=== PATIENT | female | born 1965 | race Caucasian/White ===

== ENCOUNTER 2019-06-15 09:40 | Outpatient (CLI) | payer BC, SELFPAY ==
[2019-06-15 09:54] LABS: Add Urine Microscopic? YES; Appearance Urine Sl Cloudy (Clear); Bilirubin Urine Negative (Negative); Blood Urine Negative (Negative); Color Urine Yellow (Yellow); Glucose Urine UA Negative (Negative); Ketones Urine Negative (Negative); Leukocyte Esterase Ur 1+ (Negative); Nitrate Urine Negative (Negative); Protein Urine Negative (Negative); Specific Grav Ur >= 1.030 (1.010-1.020); Urobilinogen Urine 0.2 mg/dL (0.2-1.0); pH Urine 5.5 (5.0-8.0)
[2019-06-15 10:02] LABS: Hemoglobin A1C 6.3 % (<5.7)
[2019-06-15 10:04] LABS: Creatinine Urine 177.76 mg/dL (40-278)
[2019-06-15 10:35] LABS: MALB Creatinine Ratio 6.8 mg/g (0-30); Microalbumin Urine Random 12.1 mg/L
[2019-06-15 10:39] LABS: Bacteria Urine 1+ /hpf; RBC Urine None seen /hpf (0-2); Squamous Epithelial Cell Urine Many /hpf (Few)
[2019-06-15 11:01] LABS: Alanine Aminotransferase 25 U/L (14-59); Albumin Level 3.5 g/dL (3.4-5.0); Alkaline Phosphatase 91 U/L (46-116); Anion Gap 12.5 mmol/L (7-16); Aspartate Amino Transferase 20 U/L (15-37); Bilirubin,Total 0.4 mg/dL (0.00-1.00); Blood Urea Nitrogen 16 mg/dL (7-18); Calcium 9.2 mg/dL (8.5-10.1); Carbon Dioxide 30 mmol/L (21-32); Chloride 105 mmol/L (98-108); Cholesterol 143 mg/dL (0-200); Creatine Kinase 44 U/L (26-192); Estimated Glomerular Filt Rate > 60; Glucose 81 mg/dL (70-99); HDL Direct 48 mg/dL (40-60); LDL Cholesterol Calculated 75 mg/dL (<130); Osmolality Calculated 296 mOsm/kg (285-295); Potassium 4.5 mmol/L (3.5-5.1); Sodium 143 mmol/L (136-145); Total Protein 7.7 g/dL (6.4-8.2); Triglycerides 99 mg/dL (0-150)
== END 2019-06-15 09:41 | disposition home or self-care (01) ==
LOC: CHSLAB 09:43
PROVIDERS: PCP Internal Medicine; Visit Provider Internal Medicine
DX: E78.2 Mixed hyperlipidemia (principal); I10 Essential (primary) hypertension; E11.9 Type 2 diabetes mellitus without complications
CPT/HCPCS: 36415; 80053; 80061; 81001; 82043; 82550; 83036

== ENCOUNTER 2019-07-26 16:14 | Outpatient (CLI) | payer BC, SELFPAY | END 2019-07-26 16:15 | disposition home or self-care (01) | LOC: CHSLAB 16:16 | PROVIDERS: PCP Internal Medicine; Visit Provider Internal Medicine | DX: Z80.3 Family history of malignant neoplasm of breast (principal) | CPT/HCPCS: 36415; 81162 ==

== ENCOUNTER 2019-12-28 10:18 | Outpatient (CLI) | payer BC, SELFPAY ==
[2019-12-28 10:35] LABS: Add Urine Microscopic? YES; Appearance Urine Clear (Clear); Bilirubin Urine Negative (Negative); Blood Urine Negative (Negative); Color Urine Yellow (Yellow); Glucose Urine UA Negative (Negative); Ketones Urine Negative (Negative); Leukocyte Esterase Ur 1+ (Negative); Nitrate Urine Negative (Negative); Protein Urine Negative (Negative); Specific Grav Ur 1.025 (1.010-1.020); Urobilinogen Urine 0.2 mg/dL (0.2-1.0)
[2019-12-28 10:40] LABS: Creatinine Urine 83.07 mg/dL (40-278); Microalbumin Urine Random 3.4 mg/L
[2019-12-28 10:42] LABS: Bacteria Urine Trace /hpf; Hemoglobin A1C 6.5 % (<5.7); RBC Urine None seen /hpf (0-2); Squamous Epithelial Cell Urine Few /hpf (Few)
[2019-12-28 11:15] LABS: Alanine Aminotransferase 28 U/L (14-59); Albumin Level 3.4 g/dL (3.4-5.0); Alkaline Phosphatase 91 U/L (46-116); Anion Gap 7 mmol/L (8-16); Aspartate Amino Transferase 27 U/L (15-37); Bilirubin,Total 0.4 mg/dL (0.00-1.00); Blood Urea Nitrogen 13 mg/dL (7-18); Carbon Dioxide 29 mmol/L (21-32); Chloride 103 mmol/L (98-108); Cholesterol 148 mg/dL (0-200); Creatine Kinase 48 U/L (26-192); Estimated Glomerular Filt Rate > 60; Glucose 89 mg/dL (70-99); HDL Direct 47 mg/dL (40-60); LDL Cholesterol Calculated 82 mg/dL (<130); Osmolality Calculated 287 mOsm/kg (285-295); Potassium 4.8 mmol/L (3.5-5.1); Sodium 139 mmol/L (136-145); Total Protein 7.7 g/dL (6.4-8.2); Triglycerides 93 mg/dL (0-150)
== END 2019-12-28 10:19 | disposition home or self-care (01) ==
LOC: CHSLAB 10:19
PROVIDERS: PCP Internal Medicine; Visit Provider Internal Medicine
DX: E78.2 Mixed hyperlipidemia (principal); E11.9 Type 2 diabetes mellitus without complications; I10 Essential (primary) hypertension
CPT/HCPCS: 36415; 80053; 80061; 81001; 82043; 82550; 83036

== ENCOUNTER 2020-05-04 10:12 | Outpatient (CLI) | payer BC, SELFPAY ==
[2020-05-04 11:09] LABS: SARS-CoV-2 Ag Negative (Negative)
== END 2020-05-04 10:13 | disposition home or self-care (01) ==
LOC: CHSLAB 10:15
PROVIDERS: PCP Internal Medicine; Visit Provider Internal Medicine
DX: R09.89 Other specified symptoms and signs involving the circulatory and respiratory systems (principal); Z20.828 Contact with and (suspected) exposure to other viral communicable diseases
CPT/HCPCS: 87426

== ENCOUNTER 2020-05-13 13:17 | Outpatient (CLI) | payer BC, SELFPAY ==
[2020-05-13 14:20] LABS: SARS-CoV-2 Ag Positive (Negative)
== END 2020-05-13 13:18 | disposition home or self-care (01) ==
LOC: CHSLAB 13:20
PROVIDERS: PCP Internal Medicine; Visit Provider Internal Medicine
DX: U07.1 COVID-19 (principal)
CPT/HCPCS: 87426

== ENCOUNTER 2020-06-27 10:03 | Outpatient (CLI) | payer BC, SELFPAY ==
[2020-06-27 10:20] LABS: Basophils Absolute Auto 0.05 K/mm3 (0.00-0.10); Basophils Percent Auto 0.5 % (0.0-1.0); Eosinophils Absolute Auto 0.23 K/mm3 (0.02-0.50); Eosinophils Percent Auto 2.4 % (1.0-6.0); Hematocrit 40.9 % (35.0-49.0); Hemoglobin 13.1 g/dL (12.0-15.0); Immature Granulocyte Absolute 0.06 K/mm3 (0.00-0.00); Immature Granulocyte Percent A 0.6 % (0.0-0.0); Lymphocytes Absolute Auto 2.09 K/mm3 (1.10-4.50); Lymphocytes Percent Auto 21.5 % (18.0-42.0); Mean Corpuscular Hemoglobin 28.7 pg (27.0-31.0); Mean Corpuscular Volume 89.7 fL (78.0-102.0); Mean Platelet Volume 10.2 fl (9.2-11.8); Monocytes Absolute Auto 0.59 K/mm3 (0.10-0.90); Monocytes Percent Auto 6.1 % (2.0-11.0); Neutrophils Absolute Auto 6.7 K/mm3 (1.7-7.2); Neutrophils Percent Auto 68.9 % (50.0-70.0); Platelet Count Result 277 K/mm3 (150-420); Red Blood Count 4.56 M/mm3 (4.20-5.40); Red Cell Distribution Width 13.6 % (11.6-14.4); White Blood Count 9.7 K/mm3 (4.8-10.8)
[2020-06-27 10:25] LABS: Add Urine Microscopic? YES; Appearance Urine Clear (Clear); Bilirubin Urine Negative (Negative); Blood Urine Negative (Negative); Color Urine Yellow (Yellow); Glucose Urine UA Negative (Negative); Ketones Urine Negative (Negative); Leukocyte Esterase Ur 1+ (Negative); Nitrate Urine Negative (Negative); Protein Urine Negative (Negative); Urobilinogen Urine 0.2 mg/dL (0.2-1.0); pH Urine 5.5 (5.0-8.0)
[2020-06-27 10:31] LABS: Bacteria Urine Trace /hpf; RBC Urine None seen /hpf (0-2); Squamous Epithelial Cell Urine Few /hpf (Few)
[2020-06-27 10:35] LABS: Microalbumin Urine Random < 13.0 mg/L
[2020-06-27 10:43] LABS: Hemoglobin A1C 6.4 % (<5.7)
[2020-06-27 11:44] LABS: Alanine Aminotransferase 42 U/L (14-59); Albumin Level 3.7 g/dL (3.4-5.0); Alkaline Phosphatase 98 U/L (46-116); Anion Gap 10 mmol/L (8-16); Aspartate Amino Transferase 27 U/L (15-37); Bilirubin,Total 0.5 mg/dL (0.00-1.00); Blood Urea Nitrogen 21 mg/dL (7-18); Calcium 9.3 mg/dL (8.5-10.1); Carbon Dioxide 28 mmol/L (21-32); Chloride 99 mmol/L (98-108); Cholesterol 145 mg/dL (0-200); Creatine Kinase 56 U/L (26-192); Estimated Glomerular Filt Rate 49; Glucose 140 mg/dL (70-99); HDL Direct 42 mg/dL (40-60); LDL Cholesterol Calculated 77 mg/dL (<130); Osmolality Calculated 289 mOsm/kg (285-295); Sodium 137 mmol/L (136-145); Total Protein 7.8 g/dL (6.4-8.2); Triglycerides 129 mg/dL (0-150)
== END 2020-06-27 10:04 | disposition home or self-care (01) ==
LOC: CHSLAB 10:05
PROVIDERS: PCP Internal Medicine; Visit Provider Internal Medicine
DX: E11.9 Type 2 diabetes mellitus without complications (principal); I10 Essential (primary) hypertension; E78.2 Mixed hyperlipidemia; L03.116 Cellulitis of left lower limb
CPT/HCPCS: 36415; 80053; 80061; 81001; 82043; 82550; 83036; 85025

== ENCOUNTER 2021-01-16 09:24 | Outpatient (CLI) | payer BC, SELFPAY ==
[2021-01-16 09:41] LABS: Add Urine Microscopic? YES; Appearance Urine Sl Cloudy (Clear); Bilirubin Urine Negative (Negative); Blood Urine Negative (Negative); Color Urine Light Yellow (Yellow); Glucose Urine UA Negative (Negative); Ketones Urine Negative (Negative); Leukocyte Esterase Ur 2+ (Negative); Nitrate Urine Negative (Negative); Protein Urine Negative (Negative); Specific Grav Ur 1.025 (1.010-1.020); Urobilinogen Urine 0.2 mg/dL (0.2-1.0); pH Urine 5.5 (5.0-8.0)
[2021-01-16 09:45] LABS: RBC Urine None seen /hpf (0-2); Squamous Epithelial Cell Urine Moderate /hpf (Few)
[2021-01-16 09:46] LABS: Bacteria Urine 2+ /hpf
[2021-01-16 09:48] LABS: Creatinine Urine 145.24 mg/dL (40-278); MALB Creatinine Ratio 8.9 mg/g (0-30); Microalbumin Urine Random < 13.0 mg/L
[2021-01-16 09:50] LABS: Hemoglobin A1C 7.3 % (<5.7)
[2021-01-16 11:02] LABS: Alanine Aminotransferase 35 U/L (14-59); Albumin Level 3.4 g/dL (3.4-5.0); Alkaline Phosphatase 105 U/L (46-116); Anion Gap 12 mmol/L (8-16); Aspartate Amino Transferase 23 U/L (15-37); Bilirubin,Total 0.2 mg/dL (0.00-1.00); Blood Urea Nitrogen 33 mg/dL (7-18); Calcium 9.2 mg/dL (8.5-10.1); Carbon Dioxide 23 mmol/L (21-32); Chloride 103 mmol/L (98-108); Cholesterol 148 mg/dL (0-200); Creatine Kinase 38 U/L (26-192); Estimated Glomerular Filt Rate 35; Glucose 152 mg/dL (70-99); HDL Direct 38 mg/dL (40-60); LDL Cholesterol Calculated 75 mg/dL (<130); Osmolality Calculated 296 mOsm/kg (285-295); Potassium 5.3 mmol/L (3.5-5.1); Sodium 138 mmol/L (136-145); Triglycerides 175 mg/dL (0-150)
[2021-01-16 11:57] LABS: Basophils Absolute Auto 0.05 K/mm3 (0.00-0.10); Basophils Percent Auto 0.5 % (0.0-1.0); Eosinophils Absolute Auto 0.23 K/mm3 (0.02-0.50); Eosinophils Percent Auto 2.2 % (1.0-6.0); Hematocrit 37.6 % (35.0-49.0); Hemoglobin 11.7 g/dL (12.0-15.0); Immature Granulocyte Absolute 0.05 K/mm3 (0.00-0.00); Immature Granulocyte Percent A 0.5 % (0.0-0.0); Lymphocytes Absolute Auto 2.59 K/mm3 (1.10-4.50); Lymphocytes Percent Auto 25.3 % (18.0-42.0); Mean Corpuscular HGB Conc 31.1 g/dL (32.0-36.0); Mean Corpuscular Hemoglobin 29.3 pg (27.0-31.0); Mean Platelet Volume 10.7 fl (9.2-11.8); Monocytes Absolute Auto 0.82 K/mm3 (0.10-0.90); Neutrophils Absolute Auto 6.5 K/mm3 (1.7-7.2); Neutrophils Percent Auto 63.5 % (50.0-70.0); Platelet Count Result 375 K/mm3 (150-420); Red Cell Distribution Width 12.8 % (11.6-14.4); White Blood Count 10.2 K/mm3 (4.8-10.8)
== END 2021-01-16 09:25 | disposition home or self-care (01) ==
LOC: CHSLAB 09:28
PROVIDERS: PCP Internal Medicine; Visit Provider Internal Medicine
DX: E11.65 Type 2 diabetes mellitus with hyperglycemia (principal); I10 Essential (primary) hypertension; E78.2 Mixed hyperlipidemia; L03.116 Cellulitis of left lower limb
CPT/HCPCS: 36415; 80053; 80061; 81001; 82043; 82550; 83036; 85025

== ENCOUNTER 2021-02-27 09:49 | Outpatient (CLI) | payer BC, SELFPAY ==
[2021-02-27 11:51] LABS: Anion Gap 10 mmol/L (8-16); Carbon Dioxide 26 mmol/L (21-32); Chloride 104 mmol/L (98-108); Potassium 4.7 mmol/L (3.5-5.1); Sodium 140 mmol/L (136-145)
[2021-02-27 11:52] LABS: Blood Urea Nitrogen 14 mg/dL (7-18); Calcium 8.9 mg/dL (8.5-10.1); Estimated Glomerular Filt Rate 52; Glucose 204 mg/dL (70-99); Osmolality Calculated 296 mOsm/kg (285-295)
== END 2021-02-27 09:50 | disposition home or self-care (01) ==
LOC: CHSLAB 09:50
PROVIDERS: PCP Internal Medicine; Visit Provider Internal Medicine
DX: I10 Essential (primary) hypertension (principal)
CPT/HCPCS: 36415; 80048

== ENCOUNTER 2021-04-03 11:45 | Outpatient (CLI) | payer BC, SELFPAY ==
[2021-04-03 14:13] LABS: Anion Gap 9 mmol/L (8-16); Blood Urea Nitrogen 16 mg/dL (7-18); Calcium 8.9 mg/dL (8.5-10.1); Carbon Dioxide 28 mmol/L (21-32); Chloride 101 mmol/L (98-108); Estimated Glomerular Filt Rate 45; Glucose 143 mg/dL (70-99); Osmolality Calculated 289 mOsm/kg (285-295); Potassium 4.6 mmol/L (3.5-5.1); Sodium 138 mmol/L (136-145)
== END 2021-04-03 11:46 | disposition home or self-care (01) ==
LOC: CHSLAB 11:46
PROVIDERS: PCP Internal Medicine; Visit Provider Internal Medicine
DX: I10 Essential (primary) hypertension (principal)
CPT/HCPCS: 36415; 80048

== ENCOUNTER 2021-05-22 09:39 | Outpatient (CLI) | payer BC, SELFPAY ==
[2021-05-22 10:00] LABS: Hemoglobin A1C 7.6 % (<5.7)
[2021-05-22 10:29] LABS: Anion Gap 13 mmol/L (8-16); Blood Urea Nitrogen 24 mg/dL (7-18); Carbon Dioxide 28 mmol/L (21-32); Chloride 97 mmol/L (98-108); Estimated Glomerular Filt Rate 47; Glucose 149 mg/dL (70-99); Osmolality Calculated 293 mOsm/kg (285-295); Potassium 4.3 mmol/L (3.5-5.1); Sodium 138 mmol/L (136-145)
== END 2021-05-22 09:40 | disposition home or self-care (01) ==
LOC: CHSLAB 09:42
PROVIDERS: PCP Internal Medicine; Visit Provider Internal Medicine
DX: E11.9 Type 2 diabetes mellitus without complications (principal)
CPT/HCPCS: 36415; 80048; 83036

== ENCOUNTER 2021-06-21 12:41 | Outpatient (CLI) | payer BC, SELFPAY ==
--- NOTE | ~2021-06-21 | MM_ITS ---
EXAMINATION: MM screening syeda BI w bárbara HISTORY: Screening TECHNIQUE: Craniocaudal and mediolateral oblique 3-D tomosynthesis images were obtained and synthetic 2-D images were generated. CAD analysis was submitted and interpreted. COMPARISON: Comparison to multiple prior studies sequentially, with oldest reviewed study dated 11/10. BREAST PARENCHYMAL COMPOSITION: There are scattered areas of fibroglandular density. FINDINGS: There is no evidence of suspicious mass, calcification, or architectural distortion to sugg est malignancy in either breast. There has been no suspicious interval change. IMPRESSION: 1. No mammographic evidence of malignancy. 2. Recommend routine screening mammography in one year. BI-RADS Category 1: Negative Reviewed, dictated and finalized at location A. R STITCHER
== END 2021-06-21 12:42 | disposition home or self-care (01) ==
LOC: CHSIMG 12:42
PROVIDERS: PCP Internal Medicine; Visit Provider Internal Medicine
DX: Z12.31 Encounter for screening mammogram for malignant neoplasm of breast (principal)
CPT/HCPCS: 77063; 77067

== ENCOUNTER 2021-08-18 08:17 | Outpatient (CLI) | payer SELFPAY | END 2021-08-18 08:18 | disposition home or self-care (01) | LOC: CHSOUTPT 08:19 | PROVIDERS: PCP Internal Medicine; Visit Provider Internal Medicine | DX: E66.01 Morbid (severe) obesity due to excess calories (principal) | CPT/HCPCS: 99199 ==

== ENCOUNTER 2021-10-09 10:24 | Outpatient (CLI) | payer BC, SELFPAY ==
[2021-10-09 10:39] LABS: Add Urine Microscopic? YES; Appearance Urine Clear (Clear); Basophils Absolute Auto 0.05 K/mm3 (0.00-0.10); Basophils Percent Auto 0.6 % (0.0-1.0); Bilirubin Urine Negative (Negative); Blood Urine Negative (Negative); Color Urine Light Yellow (Yellow); Eosinophils Absolute Auto 0.28 K/mm3 (0.02-0.50); Eosinophils Percent Auto 3.1 % (1.0-6.0); Glucose Urine UA Negative (Negative); Hematocrit 35.7 % (35.0-49.0); Hemoglobin 11.6 g/dL (12.0-15.0); Immature Granulocyte Absolute 0.03 K/mm3 (0.00-0.00); Immature Granulocyte Percent A 0.3 % (0.0-0.0); Ketones Urine Negative (Negative); Leukocyte Esterase Ur 1+ LEU/UL (Negative); Lymphocytes Absolute Auto 2.76 K/mm3 (1.10-4.50); Lymphocytes Percent Auto 30.7 % (18.0-42.0); Mean Corpuscular HGB Conc 32.5 g/dL (32.0-36.0); Mean Corpuscular Hemoglobin 30.2 pg (27.0-31.0); Mean Platelet Volume 10.1 fl (9.2-11.8); Monocytes Absolute Auto 0.71 K/mm3 (0.10-0.90); Monocytes Percent Auto 7.9 % (2.0-11.0); Neutrophils Absolute Auto 5.2 K/mm3 (1.7-7.2); Neutrophils Percent Auto 57.4 % (50.0-70.0); Nitrate Urine Negative (Negative); Platelet Count Result 316 K/mm3 (150-420); Protein Urine Negative (Negative); Red Blood Count 3.84 M/mm3 (4.20-5.40); Red Cell Distribution Width 12.9 % (11.6-14.4); Specific Grav Ur >= 1.030 (1.010-1.020); Urobilinogen Urine 0.2 mg/dL (0.2-1.0); pH Urine 5.5 (5.0-8.0)
[2021-10-09 10:44] LABS: Bacteria Urine 1+ /hpf; RBC Urine None seen /hpf (0-2); Squamous Epithelial Cell Urine Moderate /hpf (Few)
[2021-10-09 11:58] LABS: Alanine Aminotransferase 34 U/L (14-59); Albumin Level 3.5 g/dL (3.4-5.0); Alkaline Phosphatase 85 U/L (46-116); Anion Gap 9 mmol/L (8-16); Aspartate Amino Transferase 23 U/L (15-37); Bilirubin,Total 0.4 mg/dL (0.00-1.00); Blood Urea Nitrogen 33 mg/dL (7-18); Calcium 9.3 mg/dL (8.5-10.1); Carbon Dioxide 26 mmol/L (21-32); Chloride 102 mmol/L (98-108); Cholesterol 124 mg/dL (0-200); Creatine Kinase 49 U/L (26-192); Estimated Glomerular Filt Rate 42; Glucose 75 mg/dL (70-99); HDL Direct 38 mg/dL (40-60); LDL Cholesterol Calculated 58 mg/dL (<130); Osmolality Calculated 290 mOsm/kg (285-295); Potassium 4.6 mmol/L (3.5-5.1); Sodium 137 mmol/L (136-145); Total Protein 7.5 g/dL (6.4-8.2); Triglycerides 141 mg/dL (0-150)
[2021-10-09 12:03] LABS: Hemoglobin A1C 6.1 % (<5.7)
== END 2021-10-09 10:25 | disposition home or self-care (01) ==
LOC: CHSLAB 10:25
PROVIDERS: PCP Internal Medicine; Visit Provider Internal Medicine
DX: E78.2 Mixed hyperlipidemia (principal); E11.65 Type 2 diabetes mellitus with hyperglycemia; I10 Essential (primary) hypertension; R82.90 Unspecified abnormal findings in urine
CPT/HCPCS: 36415; 80053; 80061; 81001; 82550; 83036; 85025; 87086; 87088

== ENCOUNTER 2021-11-30 16:10 | Outpatient (CLI) | payer BC, SELFPAY ==
[2021-11-30 16:29] LABS: Anion Gap 9 mmol/L (8-16); Blood Urea Nitrogen 14 mg/dL (7-18); Calcium 9.4 mg/dL (8.5-10.1); Carbon Dioxide 28 mmol/L (21-32); Chloride 102 mmol/L (98-108); Estimated Glomerular Filt Rate 48; Glucose 153 mg/dL (70-99); Osmolality Calculated 291 mOsm/kg (285-295); Potassium 3.9 mmol/L (3.5-5.1); Sodium 139 mmol/L (136-145)
== END 2021-11-30 16:11 | disposition home or self-care (01) ==
LOC: CHSLAB 16:12
PROVIDERS: PCP Internal Medicine; Visit Provider Internal Medicine
DX: I10 Essential (primary) hypertension (principal)
CPT/HCPCS: 36415; 80048

== ENCOUNTER 2022-01-22 09:34 | Outpatient (CLI) | payer BC, SELFPAY ==
[2022-01-22 09:57] LABS: Basophils Absolute Auto 0.06 K/mm3 (0.00-0.10); Basophils Percent Auto 0.6 % (0.0-1.0); Eosinophils Absolute Auto 0.31 K/mm3 (0.02-0.50); Eosinophils Percent Auto 3.1 % (1.0-6.0); Hematocrit 39.3 % (35.0-49.0); Hemoglobin 12.5 g/dL (12.0-15.0); Immature Granulocyte Absolute 0.03 K/mm3 (0.00-0.00); Immature Granulocyte Percent A 0.3 % (0.0-0.0); Lymphocytes Absolute Auto 3.21 K/mm3 (1.10-4.50); Lymphocytes Percent Auto 32.6 % (18.0-42.0); Mean Corpuscular HGB Conc 31.8 g/dL (32.0-36.0); Mean Corpuscular Hemoglobin 29.4 pg (27.0-31.0); Mean Corpuscular Volume 92.5 fL (78.0-102.0); Mean Platelet Volume 10.2 fl (9.2-11.8); Monocytes Absolute Auto 0.72 K/mm3 (0.10-0.90); Monocytes Percent Auto 7.3 % (2.0-11.0); Neutrophils Absolute Auto 5.5 K/mm3 (1.7-7.2); Neutrophils Percent Auto 56.1 % (50.0-70.0); Platelet Count Result 322 K/mm3 (150-420); Red Blood Count 4.25 M/mm3 (4.20-5.40); Red Cell Distribution Width 12.3 % (11.6-14.4); White Blood Count 9.9 K/mm3 (4.8-10.8)
[2022-01-22 10:11] LABS: Add Urine Microscopic? YES; Appearance Urine Clear (Clear); Bilirubin Urine Negative (Negative); Blood Urine Negative (Negative); Color Urine Light Yellow (Yellow); Glucose Urine UA Negative (Negative); Ketones Urine Negative (Negative); Leukocyte Esterase Ur 1+ (Negative); Nitrate Urine Negative (Negative); Protein Urine Negative (Negative); Specific Grav Ur 1.025 (1.010-1.020); Urobilinogen Urine 0.2 mg/dL (0.2-1.0)
[2022-01-22 10:22] LABS: Alanine Aminotransferase 32 U/L (14-59); Albumin Level 3.4 g/dL (3.4-5.0); Alkaline Phosphatase 103 U/L (46-116); Anion Gap 9 mmol/L (8-16); Aspartate Amino Transferase 24 U/L (15-37); Bilirubin,Total 0.3 mg/dL (0.00-1.00); Blood Urea Nitrogen 19 mg/dL (7-18); Calcium 9.3 mg/dL (8.5-10.1); Carbon Dioxide 28 mmol/L (21-32); Chloride 100 mmol/L (98-108); Estimated Glomerular Filt Rate 54; Glucose 144 mg/dL (70-99); Osmolality Calculated 289 mOsm/kg (285-295); Potassium 4.1 mmol/L (3.5-5.1); Sodium 137 mmol/L (136-145); Total Protein 7.6 g/dL (6.4-8.2)
[2022-01-22 10:24] LABS: Hemoglobin A1C 6.9 % (<5.7)
[2022-01-22 10:33] LABS: RBC Urine None seen /hpf (0-2); Squamous Epithelial Cell Urine Few /hpf (Few); WBC Urine 0-3 /hpf (0-3)
[2022-01-22 10:34] LABS: Bacteria Urine 1+ /hpf
[2022-01-26 12:10] LABS: MALB Creatinine Ratio 1.3 mg/g (0-30); Microalbumin Urine Random < 1.3 mg/L
== END 2022-01-22 09:35 | disposition home or self-care (01) ==
LOC: CHSLAB 09:37
PROVIDERS: PCP Internal Medicine; Visit Provider Internal Medicine
DX: D64.9 Anemia, unspecified (principal); E11.9 Type 2 diabetes mellitus without complications; I10 Essential (primary) hypertension
CPT/HCPCS: 36415; 80053; 81001; 82043; 83036; 85025

== ENCOUNTER 2022-02-07 09:28 | Outpatient (CLI) | payer BC, SELFPAY ==
[2022-02-07 10:09] LABS: Ferritin 189 ng/mL (8-252); Free T3 2.42 pg/mL (2.18-3.98); Free T4 Free Thyroxine 1.07 ng/dL (0.76-1.46); Iron 52 ug/dL (50-170); Thyroid Stimulating Hormone 2.54 uIU/mL (0.36-3.74)
[2022-02-10 14:31] LABS: Vitamin D 25 Hydroxy 28 ng/mL (30-100)
== END 2022-02-07 09:29 | disposition home or self-care (01) ==
LOC: CHSLAB 09:30
PROVIDERS: PCP Internal Medicine; Visit Provider Internal Medicine
DX: L65.9 Nonscarring hair loss, unspecified (principal); M81.0 Age-related osteoporosis without current pathological fracture
CPT/HCPCS: 36415; 82306; 82728; 83540; 84439; 84443; 84481; 86038

== ENCOUNTER 2022-07-12 12:11 | Outpatient (CLI) | payer BC, SELFPAY ==
--- NOTE | ~2022-07-12 | MM_ITS ---
EXAMINATION: MM screening syeda BI w bárbara HISTORY: Screening mammogram TECHNIQUE: Craniocaudal and mediolateral oblique 3-D tomosynthesis images were obtained and synthetic 2-D images were generated. CAD analysis was submitted and interpreted. COMPARISON: June 21, 2021, February 17, 2020 bilateral screening mammogram examinations BREAST PARENCHYMAL COMPOSITION: The breasts are almost entirely fatty. FINDINGS: There is no evidence of suspicious mass, calcification, or architectural distortion to sugg est malignancy in either breast. There has been no suspicious interval change. IMPRESSION: 1. No mammographic evidence of malignancy. 2. Recommend routine screening mammography in one year. BI-RADS Category 1: Negative Reviewed, dictated and finalized at location A. NICAL CABLE JOINTER
== END 2022-07-12 12:12 | disposition home or self-care (01) ==
LOC: CHSIMG 12:11
PROVIDERS: PCP Internal Medicine; Visit Provider Internal Medicine
DX: Z12.31 Encounter for screening mammogram for malignant neoplasm of breast (principal)
CPT/HCPCS: 77063; 77067

== ENCOUNTER 2022-07-30 09:21 | Outpatient (CLI) | payer BC, SELFPAY ==
[2022-07-30 09:37] LABS: Appearance Urine Clear (Clear); Basophils Absolute Auto 0.04 K/mm3 (0.00-0.10); Basophils Percent Auto 0.5 % (0.0-1.0); Bilirubin Urine Negative (Negative); Blood Urine Negative (Negative); Eosinophils Absolute Auto 0.24 K/mm3 (0.02-0.50); Eosinophils Percent Auto 2.7 % (1.0-6.0); Glucose Urine UA Negative (Negative); Hematocrit 39.3 % (35.0-49.0); Hemoglobin 12.9 g/dL (12.0-15.0); Immature Granulocyte Absolute 0.03 K/mm3 (0.00-0.00); Immature Granulocyte Percent A 0.3 % (0.0-0.0); Ketones Urine Trace (Negative); Leukocyte Esterase Ur Trace LEU/UL (Negative); Lymphocytes Absolute Auto 2.63 K/mm3 (1.10-4.50); Lymphocytes Percent Auto 29.7 % (18.0-42.0); Mean Corpuscular HGB Conc 32.8 g/dL (32.0-36.0); Mean Corpuscular Hemoglobin 29.9 pg (27.0-31.0); Monocytes Percent Auto 7.9 % (2.0-11.0); Neutrophils Absolute Auto 5.2 K/mm3 (1.7-7.2); Neutrophils Percent Auto 58.9 % (50.0-70.0); Nitrate Urine Negative (Negative); Platelet Count Result 312 K/mm3 (150-420); Protein Urine Trace (Negative); Red Blood Count 4.32 M/mm3 (4.20-5.40); Red Cell Distribution Width 12.4 % (11.6-14.4); Specific Grav Ur >= 1.030 (1.010-1.020); Urobilinogen Urine 0.2 mg/dL (0.2-1.0); White Blood Count 8.9 K/mm3 (4.8-10.8); pH Urine 5.5 (5.0-8.0)
[2022-07-30 09:46] LABS: Color Urine Yellow (Yellow)
[2022-07-30 09:47] LABS: Add Urine Microscopic? NO; Bacteria Urine 1+ /hpf; RBC Urine None seen /hpf (0-2); Squamous Epithelial Cell Urine Moderate /hpf (Few)
[2022-07-30 09:59] LABS: Hemoglobin A1C 6.9 % (<5.7)
[2022-07-30 10:05] LABS: Alanine Aminotransferase 34 U/L (14-59); Albumin Level 3.4 g/dL (3.4-5.0); Alkaline Phosphatase 114 U/L (46-116); Anion Gap 11 mmol/L (8-16); Aspartate Amino Transferase 21 U/L (15-37); Bilirubin,Total 0.3 mg/dL (0.00-1.00); Blood Urea Nitrogen 20 mg/dL (7-18); Calcium 9.2 mg/dL (8.5-10.1); Carbon Dioxide 31 mmol/L (21-32); Chloride 104 mmol/L (98-108); Cholesterol 128 mg/dL (0-200); Creatine Kinase 39 U/L (26-192); Estimated Glomerular Filt Rate 54; Glucose 132 mg/dL (70-99); HDL Direct 44 mg/dL (40-60); LDL Cholesterol Calculated 50 mg/dL (<130); Osmolality Calculated 306 mOsm/kg (285-295); Potassium 4.4 mmol/L (3.5-5.1); Sodium 146 mmol/L (136-145); Total Protein 7.3 g/dL (6.4-8.2); Triglycerides 169 mg/dL (0-150)
[2022-08-02 21:27] LABS: Vitamin D 25 Hydroxy 26 ng/mL (30-100)
== END 2022-07-30 09:22 | disposition home or self-care (01) ==
LOC: CHSLAB 09:22
PROVIDERS: PCP Internal Medicine; Visit Provider Internal Medicine
DX: N39.0 Urinary tract infection, site not specified (principal); E55.9 Vitamin D deficiency, unspecified; E78.2 Mixed hyperlipidemia; E11.9 Type 2 diabetes mellitus without complications; I10 Essential (primary) hypertension
CPT/HCPCS: 36415; 80053; 80061; 81003; 82306; 82550; 83036; 85025

== ENCOUNTER 2022-09-06 11:57 | Outpatient (CLI) | payer BC, SELFPAY ==
--- NOTE | ~2022-09-06 | DEXA_ITS ---
Bone Density Report Name: ABEBE RAINES Age: 57 Sex: Female Ethnicity: White Date of : 1965 Indication: screening for osteoporosis; Referring Provider: Adam Hooker Study: Bone densitometry was performed. Exam Date: September 06, 2022 Accession number: [id number] Bone Density: Region BMD T-score Z-score Classification AP Spine(L1-L4) 0.877 -1.5 -0.3 Osteopenia Femoral Neck (Left) 0.631 -2.0 -0.8 Osteopenia Total Hip (Left) 0.836 -0.9 -0.1 Normal Femoral Neck (Right) 0.756 -0.8 0.3 Normal Total Hip (Right) 0.807 -1.1 -0.3 Osteopenia Femoral Neck Mean 0.693 -1.4 -0.2 Osteopenia Total Hip Mean 0.821 -1.0 -0.2 Normal World Health Organization criteria for BMD impression classify patients as: Normal (T-score at or above -1.0), Osteopenia (T-score between -1.0 and -2.5), or Osteoporosis (T-score at or below -2.5). 10-year Fracture Risk: FRAX not reported because: Premenopausal woman Clinical Information Provided by Patient: Patient maximum height was 65 No regular weight bearing exercise Does not regularly consume dairy products Drinks caffeinated beverages Onset of menses at age 12 Premenopausal Number of children 0 Missed period for more than 6 months in a row Impression: The patient's bone mass is within expected range for age, gender and ethnicity. Discussion: BONE DENSITY IS WITHIN EXPECTED LIMITS FOR AGE, SEX AND RACE. Bone density is within expected limits for age, sex and race at all sites measured. The patient should follow a healthful lifestyle (good nutrition with adequate calcium and vitamin D, and appropriate weight-bearing exercise). Follow-Up: Consider repeating this study in 2 to 3 years to reassess this patient's status, or sooner if there is some new clinical indication. Reported by: Dr. Ottoniel Miller on 09/06/2022 12:24:00 PM. Reviewed, dictated and finalized at location A. [facility]
== END 2022-09-06 11:58 | disposition home or self-care (01) ==
LOC: CHSIMG 11:58
PROVIDERS: PCP Internal Medicine; Visit Provider Internal Medicine
DX: Z78.0 Asymptomatic menopausal state (principal); M85.89 Other specified disorders of bone density and structure, multiple sites
CPT/HCPCS: 77080

== ENCOUNTER 2023-01-28 09:12 | Outpatient (CLI) | payer BC, SELFPAY ==
[2023-01-28 09:31] LABS: Appearance Urine Clear (Clear); Bilirubin Urine Negative (Negative); Blood Urine Negative (Negative); Color Urine Light Yellow (Yellow); Glucose Urine UA Negative (Negative); Ketones Urine Negative (Negative); Leukocyte Esterase Ur 1+ (Negative); Nitrate Urine Negative (Negative); Protein Urine Negative (Negative); Specific Grav Ur >= 1.030 (1.010-1.020); Urobilinogen Urine 0.2 mg/dL (0.2-1.0); pH Urine 5.5 (5.0-8.0)
[2023-01-28 09:37] LABS: Creatinine Urine 232.12 mg/dL (40-278); MALB Creatinine Ratio 15.1 mg/g (0-30); Microalbumin Urine Random 35.1 mg/L
[2023-01-28 09:39] LABS: Add Urine Microscopic? YES; Hemoglobin A1C 7.2 % (<5.7); RBC Urine None seen /hpf (0-2); Squamous Epithelial Cell Urine Moderate /hpf (Few)
[2023-01-28 09:40] LABS: Bacteria Urine 1+ /hpf
[2023-01-28 10:06] LABS: Alanine Aminotransferase 41 U/L (14-59); Albumin Level 3.5 g/dL (3.4-5.0); Alkaline Phosphatase 98 U/L (46-116); Anion Gap 5 mmol/L (8-16); Aspartate Amino Transferase 26 U/L (15-37); Bilirubin,Total 0.5 mg/dL (0.00-1.00); Blood Urea Nitrogen 19 mg/dL (7-18); Calcium 9.2 mg/dL (8.5-10.1); Carbon Dioxide 30 mmol/L (21-32); Chloride 105 mmol/L (98-108); Cholesterol 141 mg/dL (0-200); Estimated Glomerular Filt Rate > 60; Glucose 144 mg/dL (70-99); HDL Direct 41 mg/dL (40-60); LDL Cholesterol Calculated 71 mg/dL (<130); Osmolality Calculated 295 mOsm/kg (285-295); Potassium 4.6 mmol/L (3.5-5.1); Sodium 140 mmol/L (136-145); Total Protein 7.1 g/dL (6.4-8.2); Triglycerides 147 mg/dL (0-150)
[2023-01-30 11:25] LABS: Creatine Kinase 38 U/L (26-192)
== END 2023-01-28 09:13 | disposition home or self-care (01) ==
LOC: CHSLAB 09:13
PROVIDERS: PCP Internal Medicine; Visit Provider Internal Medicine
DX: I10 Essential (primary) hypertension (principal); E78.2 Mixed hyperlipidemia; E11.65 Type 2 diabetes mellitus with hyperglycemia
CPT/HCPCS: 36415; 80053; 80061; 81001; 82043; 82550; 83036

== ENCOUNTER 2023-04-29 09:20 | Outpatient (CLI) | payer BC, SELFPAY ==
[2023-04-29 09:43] LABS: Hemoglobin A1C 7.2 % (<5.7)
[2023-04-29 09:54] LABS: Alanine Aminotransferase 49 U/L (14-59); Albumin Level 3.6 g/dL (3.4-5.0); Alkaline Phosphatase 101 U/L (46-116); Anion Gap 5 mmol/L (8-16); Aspartate Amino Transferase 38 U/L (15-37); Bilirubin,Total 0.4 mg/dL (0.00-1.00); Blood Urea Nitrogen 22 mg/dL (7-18); Calcium 9.3 mg/dL (8.5-10.1); Carbon Dioxide 31 mmol/L (21-32); Chloride 100 mmol/L (98-108); Estimated Glomerular Filt Rate 49; Glucose 157 mg/dL (70-99); Osmolality Calculated 288 mOsm/kg (285-295); Potassium 4.5 mmol/L (3.5-5.1); Sodium 136 mmol/L (136-145); Total Protein 7.3 g/dL (6.4-8.2)
== END 2023-04-29 09:21 | disposition home or self-care (01) ==
LOC: CHSLAB 09:22
PROVIDERS: PCP Internal Medicine; Visit Provider Internal Medicine
DX: E11.65 Type 2 diabetes mellitus with hyperglycemia (principal)
CPT/HCPCS: 36415; 80053; 83036

== ENCOUNTER 2023-07-14 08:09 | Outpatient (CLI) | payer BC, SELFPAY ==
--- NOTE | ~2023-07-14 | MM_ITS ---
EXAMINATION: MM screening syeda BI w bárbara HISTORY: Screening TECHNIQUE: Craniocaudal and mediolateral oblique 3-D tomosynthesis images were obtained and synthetic 2-D images were generated. CAD analysis was submitted and interpreted. COMPARISON: Comparison to multiple prior studies sequentially, with oldest reviewed study dated 01/2018. BREAST PARENCHYMAL COMPOSITION: Not Dense: Breast are almost entirely fatty. FINDINGS: There is no evidence of suspicious mass, calcification, or architectural distortion to sugg est malignancy in either breast. There has been no suspicious interval change. IMPRESSION: 1. No mammographic evidence of malignancy. 2. Recommend routine screening mammography in one year. BI-RADS Category 1: Negative Reviewed, dictated and finalized at location A. ITY MANAGEMENT COORDINATOR
== END 2023-07-14 08:10 | disposition home or self-care (01) ==
LOC: CHSIMG 08:11
PROVIDERS: PCP Internal Medicine; Visit Provider Internal Medicine
DX: Z12.31 Encounter for screening mammogram for malignant neoplasm of breast (principal)
CPT/HCPCS: 77063; 77067

== ENCOUNTER 2023-09-02 10:07 | Outpatient (CLI) | payer BC, SELFPAY ==
[2023-09-02 11:40] LABS: Appearance Urine Clear (Clear); Bilirubin Urine Negative (Negative); Blood Urine Negative (Negative); Color Urine Light Yellow (Yellow); Glucose Urine UA Negative (Negative); Ketones Urine Negative (Negative); Leukocyte Esterase Ur 2+ (Negative); Nitrate Urine Negative (Negative); Protein Urine Negative (Negative); Specific Grav Ur 1.025 (1.010-1.020); Urobilinogen Urine 0.2 mg/dL (0.2-1.0)
[2023-09-02 11:42] LABS: Alanine Aminotransferase 54 U/L (14-59); Albumin Level 3.5 g/dL (3.4-5.0); Alkaline Phosphatase 96 U/L (46-116); Anion Gap 7 mmol/L (4-12); Aspartate Amino Transferase 35 U/L (15-37); Bilirubin,Total 0.5 mg/dL (0.00-1.00); Blood Urea Nitrogen 17 mg/dL (7-18); Carbon Dioxide 29 mmol/L (21-32); Chloride 102 mmol/L (98-108); Cholesterol 158 mg/dL (0-200); Creatine Kinase 36 U/L (26-192); Estimated Glomerular Filt Rate 59; Glucose 159 mg/dL (70-99); HDL Direct 41 mg/dL (40-60); LDL Cholesterol Calculated 83 mg/dL (<130); Osmolality Calculated 290 mOsm/kg (285-295); Potassium 4.4 mmol/L (3.5-5.1); Sodium 138 mmol/L (136-145); Total Protein 7.1 g/dL (6.4-8.2); Triglycerides 170 mg/dL (0-150)
[2023-09-02 11:45] LABS: Add Urine Microscopic? YES; RBC Urine None seen /hpf (0-2); Squamous Epithelial Cell Urine Moderate /hpf (Few); WBC Urine 0-3 /hpf (0-3)
[2023-09-02 11:46] LABS: Bacteria Urine 1+ /hpf
[2023-09-02 11:48] LABS: Creatinine Urine 122.07 mg/dL (40-278); MALB Creatinine Ratio 13.5 mg/g (0-30); Microalbumin Urine Random 16.6 mg/L
[2023-09-02 11:59] LABS: Hemoglobin A1C 7.6 % (<5.7)
== END 2023-09-02 10:08 | disposition home or self-care (01) ==
PROVIDERS: PCP Internal Medicine; Visit Provider Internal Medicine
DX: E78.2 Mixed hyperlipidemia (principal); E11.65 Type 2 diabetes mellitus with hyperglycemia; R10.9 Unspecified abdominal pain; N18.2 Chronic kidney disease, stage 2 (mild)
CPT/HCPCS: 36415; 80053; 80061; 81001; 82043; 82550; 83036

== ENCOUNTER 2024-03-02 09:36 | Outpatient (CLI) | payer BC, SELFPAY ==
[2024-03-02 10:31] LABS: Creatinine Urine 226.96 mg/dL (40-278); MALB Creatinine Ratio 17.5 mg/g (0-30); Microalbumin Urine Random 39.9 mg/L
[2024-03-02 10:38] LABS: Anion Gap 7 mmol/L (4-12); Blood Urea Nitrogen 17 mg/dL (7-18); Carbon Dioxide 31 mmol/L (21-32); Chloride 101 mmol/L (98-108); Estimated Glomerular Filt Rate > 60; Glucose 141 mg/dL (70-99); Osmolality Calculated 291 mOsm/kg (285-295); Potassium 4.2 mmol/L (3.5-5.1); Sodium 139 mmol/L (136-145)
[2024-03-02 10:46] LABS: Hemoglobin A1C 6.7 % (<5.7)
== END 2024-03-02 09:37 | disposition home or self-care (01) ==
LOC: CHSLAB 09:38
PROVIDERS: PCP Internal Medicine; Visit Provider Internal Medicine
DX: E11.65 Type 2 diabetes mellitus with hyperglycemia (principal)
CPT/HCPCS: 36415; 80048; 82043; 83036

== ENCOUNTER 2024-06-22 10:33 | Outpatient (CLI) | payer BC, SELFPAY ==
--- OUTSIDE RECORDS SUMMARY | 2024-06-22 10:38 | XMS_ITS | Referral Summary ---
Author Organization [facility] Address [address] [place] [address] Care Team Providers Care Practice Director Name Role Phone Adam Hooker MD Primary Care Provider [phone] Source Comments [facility],non-owned Affiliates and Associated Physician Practices is amultiple site organization consisting of ambulatory clinics and hospital sitesin [place], [place], [place] and [place]. This disclosure is being madepursuant to the Care Everywhere program and may not contain all information available regarding this patient. Last updated 18.[facility] Allergies Active Allergy Reactions Criticality Noted Date Comments Sulfa Drugs Itching,Swelling 03/21/2019 Medications * Be aware that medications may not be up to date on this document. Alwaysverify current medications with the patient. Medication Sig Dispensed Refills Start Date End Date Status glimepiride (AMARYL) 4 MG tablet 03/19/2019 Active lisinopril (PRINIVIL; ZESTRIL) 10 MG tablet 01/15/2019 Active metFORMIN ER 24hr (GLUCOPHAGE XR) 500 MG tablet 12/30/2018 Active pioglitazone (ACTOS) 30 MG tablet 01/20/2019 Active pravastatin (PRAVACHOL) 20 MG tablet 03/19/2019 Active Active Problems Problem Noted Date Diagnosed Date Mass of right breast on mammogram 10/13/2019 Immunizations Name Administration Dates Next Due INFLUENZA VACCINE 01/15/2020 Social History Tobacco Use Types Packs/Day Years Used Date Smoking Tobacco: Never Smokeless Tobacco: Never Alcohol Use Standard Drinks/Week Comments Not Currently 0 (1 standard drink = 0.6 oz pur e alcohol) Sex and Gender Information Value Date Recorded Sex Assigned at Not on file Gender Identity Not on file Sexual Orientation Not on file Last Filed Vital Signs Vital Sign Reading Time Taken Comments Blood Pressure 126/75 02/17/2020 8:58 AM CDT Pulse 82 02/17/2020 8:58 AM CDT Temperature 36.8 C (98.2 F) 02/17/2020 8:58 AM CDT Respiratory Rate 14 02/17/2020 8:58 AM CDT Oxygen Saturation 96% 02/17/2020 8:58 AM CDT Inhaled Oxygen Concentration - - Weight 143.5 kg (316 lb 6.4 oz) 02/17/2020 8:58 AM CDT Height 167.6 cm (5' 6 ) 02/17/2020 8:58 AM CDT Body Mass Index 51.07 02/17/2020 8:58 AM CDT Plan of Treatment Not on file Procedures Procedure Name Priority Date/Time Associated Diagnosis Comments MAMMO BILAT SCREENING Routine 02/17/2020 8:48 AM CDT Breast cancer screening from Last 3 Months or Most Recently Relevant to Health Maintenance Results * MAMMO BILAT SCREENING (02/17/2020 8:48 AM CDT) Anatomical Region Laterality Modality Breast Bilateral Mammography 02/17/2020 8:47 AM CDT Impressions 02/17/2020 8:48 AM CDT IMPRESSION: No mammographic evidence of malignancy. ASSESSMENT: BI-RADS Category 1: Negative mammogram. RECOMMENDATION: Annual screening mammograms are recommended. This report was electronically signed by MELIZA BOYD M.D. on 02/17/2020 8:48 AM . Narrative 02/17/2020 8:48 AM CDT Bilateral screening mammogram Date: 02/17/2020 8:05 AM Comparison: Multiple priors, most recently 10/14/2019 and 02/21/2019 History: Screening mammogram. Technique: The breasts were imaged in multiple views using 3D tomosynthesis with reconstructed/synthetic images and CAD analysis. Findings: No suspicious mass, grouped microcalcification or architectural distortion is seen. No significant change is noted since the prior examination. Breast parenchymal density: There are scattered areas of fibroglandular density. This examination was subjected to CAD analysis. Concetta Schultz MD MAMMO ORDERABLES from Last 3 Months or Most Recently Relevant to Health Maintenance Care Teams Practice Director Relationship Specialty Start Date End Date Adam Hooker MD PCP - General 03/12/19
--- OUTSIDE RECORDS SUMMARY | 2024-06-22 10:38 | XMS_ITS | Patient Health Summary ---
Author Organization [facility] Address [address] [place] [address] Care Team Providers Care Public Transit Specialist Name Role Phone Adam Hooker MD Primary Care Provider [phone] Note from [facility],non-owned Affiliates and Associated Physician Practices is amultiple site organization consisting of ambulatory clinics and hospital sitesin [place], [place], [place] and [place]. This disclosure is being madepursuant to the Care Everywhere program and may not contain all information available regarding this patient. Last updated 18.[facility] Allergies * Sulfa Drugs(Itching,Swelling) Medications * Be aware that medications may not be up to date on this document. Alwaysverify current medications with the patient. * glimepiride (AMARYL) 4 MG tablet(Started 03/19/2019) * lisinopril (PRINIVIL; ZESTRIL) 10 MG tablet(Started 01/15/2019) * metFORMIN ER 24hr (GLUCOPHAGE XR) 500 MG tablet(Started 12/30/2018) * pioglitazone (ACTOS) 30 MG tablet(Started 01/20/2019) * pravastatin (PRAVACHOL) 20 MG tablet(Started 03/19/2019) Active Problems Problem Noted Date Diagnosed Date Mass of right breast on mammogram 10/13/2019 Immunizations * INFLUENZA VACCINE(Given 01/15/2020) Social History Tobacco Use Types Packs/Day Years [...] Mass Index 51.07 02/17/2020 8:58 AM CDT Procedures * MAMMO BILAT SCREENING(Performed 02/17/2020) Performed for Breast cancer screening * US BREAST RIGHT LTD(Performed 10/14/2019) Performed for Breast mass, right * MAMMO RIGHT DIAGNOSTIC(Performed 10/14/2019) Performed for Breast mass, right * US BREAST RIGHT LTD(Performed 04/01/2019) Performed for Breast mass, right * EYE EXAM(Performed 03/18/2019) Results * MAMMO BILAT SCREENING (02/17/2020 8:48 [...] CAD analysis. Concetta Schultz MD MAMMO ORDERABLES * US BREAST RIGHT LTD (10/14/2019 9:46 AM CDT) Only the most recent of2 resultswithin the time period is included. Anatomical Region Laterality Modality Breast Right Mammography 10/14/2019 9:16 AM CDT Impressions 10/14/2019 9:57 AM CDT IMPRESSION: Mass in right breast is stable and considered benign. No further imaging follow-up is required. ASSESSMENT: BI-RADS Category 2: Benign finding(s). RECOMMENDATION: Patient may return to screening with next bilateral screening mammogram in February 2020. Findings discussed with the patient by Dr. Live. This report was electronically signed by GERDA LIVE M.D. on 10/14/2019 9:57 AM . Narrative 10/14/2019 9:57 AM CDT RIGHT DIAGNOSTIC MAMMOGRAM TARGETED RIGHT BREAST ULTRASOUND TECHNIQUE: Images were performed using 3D tomosynthesis images with reconstructed/synthetic 2D images. CAD analysis was performed. DATE: 10/14/2019. HISTORY: 54-year-old female here for short interval follow-up of probably benign right breast mass, initially identified on outside facility mammogram. COMPARISON: 04/01/2019, 03/05/2019, 03/02/2018. BREAST COMPOSITION: The breasts are almost entirely fatty. FINDINGS: There is no suspicious mass, architectural distortion, or microcalcification in the right breast on 2D or 3D images. There has been no substantial change from the prior study. Targeted ultrasound was performed at 9:00 in the right breast, 4 cm from the nipple, location of previously identified mass. There is an unchanged oval nearly anechoic mass with circumscribed margins measuring 0.5 x 0.2 x 0.4 cm, unchanged from prior study. Concetta Schultz MD US ORDERABLES * MAMMO RIGHT DIAGNOSTIC (10/14/2019 9:40 AM CDT) Anatomical Region Laterality Modality Breast Right Mammography 10/14/2019 9:16 AM CDT Impressions 10/14/2019 9:57 AM CDT IMPRESSION: Mass in right breast is stable and considered benign. No further imaging follow-up is required. ASSESSMENT: BI-RADS Category 2: Benign finding(s). RECOMMENDATION: Patient may return to screening with next bilateral screening mammogram in February 2020. Findings discussed with the patient by Dr. Live. This report was electronically signed by GERDA LIVE M.D. on 10/14/2019 9:57 AM . Narrative 10/14/2019 9:57 AM CDT RIGHT DIAGNOSTIC MAMMOGRAM TARGETED RIGHT BREAST ULTRASOUND TECHNIQUE: Images were performed using 3D tomosynthesis images with reconstructed/synthetic 2D images. CAD analysis was performed. DATE: 10/14/2019. HISTORY: 54-year-old female here for short interval follow-up of probably benign right breast mass, initially identified on outside facility mammogram. COMPARISON: 04/01/2019, 03/05/2019, 03/02/2018. BREAST COMPOSITION: The breasts are almost entirely fatty. FINDINGS: There is no suspicious mass, architectural distortion, or microcalcification in the right breast on 2D or 3D images. There has been no substantial change from the prior study. Targeted ultrasound was performed at 9:00 in the right breast, 4 cm from the nipple, location of previously identified mass. There is an unchanged oval nearly anechoic mass with circumscribed margins measuring 0.5 x 0.2 x 0.4 cm, unchanged from prior study. Concetta Schultz MD MAMMO ORDERABLES * EYE EXAM (03/18/2019 8:53 AM BATCH TESTER) Anatomical Region Laterality Modality Other Narrative 03/18/2019 8:53 AM BATCH TESTER Ordered by an unspecified provider. Scanned Document SCANNING ONLY Care Teams Public Transit Specialist Relationship Specialty Start Date End Date Adam Hooker MD PCP - General 03/12/19
--- OUTSIDE RECORDS SUMMARY | 2024-06-22 10:38 | XMS_ITS | Clinical Summary ---
Author Organization [facility] Address [address] [place] [address] Care Team Providers Care Nursery School Attendant Name Role Phone Adam Hooker MD Primary Care Provider [phone] Source Comments [facility],non-[facility] Affiliates and Associated Physician Practices is amultiple site organization consisting of ambulatory clinics and hospital sitesin [place], [place], [place] and [place]. This disclosure is being madepursuant to the Care Everywhere program and may not contain all information available regarding this patient. Last updated 18.[facility] Allergies Active Allergy Reactions Criticality Noted Date [...] Administration Dates Next Due INFLUENZA VACCINE 01/15/2020 Family History Medical History Relation Name Comments Cancer - Prostate Father Cancer - Breast Mother Cancer - Breast Paternal Aunt Relation Name Status Comments Father Mother Paternal Aunt Social History Tobacco Use Types Packs/Day Years [...] 02/17/2020 8:58 AM CDT Plan of Treatment Health Maintenance Due Date Last Done Comments COLOGUARD (AGES 45-75) - COL ON CA SCREENING 1965 COLON MONITORING 1965 COLONOSCOPY - COLON CA SCREENING 1965 CT COLONOGRAPHY - COLON CA SCREENING 1965 Colorectal Cancer Screening 1965 FIT - COLON CA SCREENING 1965 FLEX SIG - COLON CA SCREENING 1965 PAP SMEAR 1965 HIV SCREENING 1980 HEPATITIS C SCREENING 04/19/1983 DTAP/TDAP/TD VACCINES (1 - Tdap) 1984 HEPATITIS B VACCINE (1 of 3 - 19+ 3-dose series) 1984 PNEUMOCOCCAL VACCINE 50+ (1 of 1 - PCV) 2015 ZOSTER VACCINE (1 of 2) 2015 SCREENING FOR DIABETES 03/21/2019 MAMMOGRAM 02/16/2022 02/17/2020 COVID-19 VACCINE (1 - 2023-2 5 season) 2024 INFLUENZA VACCINE (#1) 2024 01/15/2020 DEPRESSION SCREENING 05/15/2024 HIB VACCINE Aged Out No longer eligi ble based on patient's age to complete this topic HPV VACCINE Aged Out No longer eligi ble based on patient's age to complete this topic MENINGOCOCCAL (Group B) VACCINE Aged Out No longer eligible based on patient's age to complete this topic MENINGOCOCCAL VACCINE Aged Out No mee crystal eligible based on patient's age to complete this topic PNEUMOCOCCAL VACCINE Aged Out No long er eligible based on patient's age to complete this topic Procedures Procedure Name Priority Date/Time Associated Diagnosis [...] Recently Relevant to Health Maintenance Care Teams Nursery School Attendant Relationship Specialty Start Date End Date Adam Hooker MD PCP - General 03/12/19
--- OUTSIDE RECORDS SUMMARY | 2024-06-22 10:38 | XMS_ITS | Clinical Summary ---
Author Organization [facility] [address] Address [address] [place] [id number] Care Team Providers Care Seed Sales Manager Name Role Phone Melecio Hooker MD Primary Care Provider [phone] Adam Hooker MD Unavailable [phone] Allergies Active Allergy Reactions Criticality Noted Date Comments Sulfa (Sulfonamide Antibiotics) Swelling Medium 07/13 vaginal Medications metFORMIN XR (GLUCOPHAGE XR) 500 mg 24 hr tablet 9 Active pravastatin (PRAVACHOL) 20 mg tablet 9 Active glimepiride (AMARYL) 4 mg tablet 9 Active Ozempic 0.25 mg or 0.5 mg(2 mg/1.5 mL) pen injector injection INJECT 0.25 MG SUBCUTANEOUSLY WEEKLY X 4 WEEKS , THEN INJECT 0.5 MG WEEKLY X 2 WEEKS 2 Active True Metrix Glucose Test Strip strip USE TO TEST GLUCOSE TWICE DAILY 2 Active lisinopril-hyd roCHLOROthiazi de (ZESTORETIC) 20-12.5 mg per tablet Take 1 tablet by mouth daily 2 Active Active Problems Problem Noted Date Diagnosed Date Type 2 diabetes mellitus wit h hyperglycemia, without long-term current use of insulin 07/20/2021 Assessment & Plan (07/20/2021 2:45 PM ENVIRONMENTAL ADVISER): Diagnosed in 2014 Control : fluctuation in sugars based on diet. A1c 7.6% on 05/22/21 Kidney: GFR 47- creatinine of 1.18 Neuropathy : none Eye : needs exam Plan: Discussed with patient need to be on diabetic diet , and work on weight loss to get sugars in better control She was provided with diet plan, and asked to see dietitian close to her home. Discussed the option of bariatric surgery for obesity and diabetes, and that is based on her wishes. Continue Ozempic which can help her with weight loss and the dose can be increased if needed in the future. Continue Glimepiride and Metformin Monitor sugars once /day and target am sugars 80-130. Hypoglycemia symptoms and treatment reviewed with patient. Call if having low sugars. Ophthalmology exam on regular basis. Venous stasis 07/24/2019 Surgical History Surgery Date Site/Laterality Comments CHOLECYSTECTOMY 05/15/1999 - 05/14/2000 Medical History Medical History Date Comments Hypertension Diabetes (HCC) Morbid obesity (HCC) Social History Tobacco Use Types Packs/Day Years Used Date Smoking Tobacco: Never Smokeless Tobacco: Never Personal Safety Answer Date Recorded Getting School Help Needed Not on file 07/15 Comments Unknown Sex and Gender Information Value Date Recorded Sex Assigned at Not on file Legal Sex Female 3:08 PM ENVIRONMENTAL ADVISER Gender Identity Not on file Sexual Orientation Not on file Obstetrics History Last Filed Vital Signs Vital Sign Reading Time Taken Comments Blood Pressure 128/68 07/20/2021 1:58 PM ENVIRONMENTAL ADVISER Pulse - - Temperature - - Respiratory Rate - - Oxygen Saturation - - Inhaled Oxygen Concentration - - Weight 121.4 kg (267 lb 11.2 oz) 07/20/2021 1:58 PM ENVIRONMENTAL ADVISER Height 165.1 cm (5' 5 ) 07/20/2021 1:58 PM ENVIRONMENTAL ADVISER Body Mass Index 44.55 07/20/2021 1:58 PM ENVIRONMENTAL ADVISER Plan of Treatment Health Maintenance Due Date Last Done Comments Breast Cancer Screening-Mammogram 1965 Cervical Cancer Screening 1965 Colon Cancer Screening-Colonoscopy 1965 Depression Screening 1965 Hepatitis C Screening 1965 DTaP/Tdap/Td Vaccine (1 - Tdap) 1976 Hepatitis B Screening 1983 Regular Well Visit/Exam 18-64 1983 Hemoglobin A1C 11/19/2021 05/22/2021 Albumin Creatinine Ratio, Urine 01/16/2022 Lipid Panel 01/16/2022 01/16/2021 Dilated Eye Exam 03/29/2022 03/29/2021 eGFR 05/22/2022 05/22/2021 Foot Exam 07/20/2022 07/20/2021 Covid-19 Vaccine (4 - 2023-2 5 season) 2024 02/23/2021, 08/02/2020, 07/12/2020 Influenza Vaccine (#1) 2024 , 01/15/2020, 03/07/2019, Additional history exists Pneumococcal vaccine <65 (3 of 3 - PPSV23 or PCV20) 2030 12/26/2018, 07/23/2015, 01/31/2014 Zoster Vaccine Completed 03/20/2019, 12/07/2018 Procedures Procedure Name Priority Date/Time Associated Diagnosis Comments BASIC METABOLIC PANEL Routine 05/22/2021 HEMOGLOBIN A1C Routine 05/22/2021 DIABETIC EYE EXAM Routine 03/29/2021 LIPID PANEL Routine 01/16/2021 ALBUMIN CREATININE RATIO, URINE Routine 01/16/2021 from Last 3 Months or Most Recently Relevant to Health Maintenance Results * Hemoglobin A1c (05/22/2021) SCRIBED Hemoglobin A1c 7.6 - - - EXTERNAL LAB Blood specimen (specimen) 05/22/2021 us Historical Provider MD LAB BLOOD ORDERABLES Georgina l Result EXTERNAL LAB * Basic metabolic panel (05/22/2021) SCRIBED Sodium 138 - - - mmol/L EXTERNAL LAB SCRIBED Potassium 4.3 - - - mmol/L EXTERNAL LAB SCRIBED Chloride 97 - - - mmol/L EXTERNAL LAB SCRIBED Carbon Dioxide 28 - - - mmol/L EXTERNAL LAB SCRIBED Anion Gap 13 - - - mmol/L EXTERNAL LAB SCRIBED Urea Nitrogen (BUN) 24 - - - mg/dl EXTERNAL LAB SCRIBED Creatinine 1.18 - - - mg/dl EXTERNAL LAB SCRIBED Glucose 149 - - - mg/dl EXTERNAL LAB SCRIBED Calcium 9.0 - - - mg/dl EXTERNAL LAB SCRIBED eGFR in 47 - - - EXTERNAL LAB SCRIBED eGFR in NonAfrican [place] 47 - - - EXTERNAL LAB Blood specimen (specimen) 05/22/2021 Result [employer] Provider MD LAB BLOOD ORDERABLES Georgina l Result EXTERNAL LAB * Diabetic Eye Exam (03/29/2021) Result [employer] Provider MD HEALTH MAINTENANCE Final Result * Albumin Creatinine Ratio, Urine (01/16/2021) SCRIBED Creatinine, Urine 145.24 - - - EXTERNAL LAB SCRIBED Microalbumin <13.0 - - - EXTERNAL LAB Urine 01/16/2021 Result [employer] Provider MD LAB URINE ORDERABLES Georgina l Result Performing Organization Address [facility] Co de Phone Number EXTERNAL LAB * Lipid panel (01/16/2021) SCRIBED Cholesterol, Total 148 - - - EXTERNAL LAB SCRIBED HDL 38 - - - EXTERNAL LAB SCRIBED LDL 75 - - - EXTERNAL LAB SCRIBED Triglycerides 175 - - - EXTERNAL LAB Blood specimen (specimen) 01/16/2021 Result [facility] Historical Provider LAB BLOOD ORDERABLES Georgina l Result Performing Organization Address City/[facility]/ZIP Co de Phone Number EXTERNAL LAB from Last 3 Months or Most Recently Relevant to Health Maintenance Insurance [facility] Care Teams Seed Sales Manager Relationship Specialty Start Date End Date Melecio Hooker MD [address] [place] [address] PCP - General Internal Medicine 07/09/19 Adam Hooker MD [address] [place] [address] Internal Medicine 07/09/19
--- OUTSIDE RECORDS SUMMARY | 2024-06-22 10:38 | XMS_ITS | Referral Summary ---
Author Organization [facility] [address] Address [address] [place] [id number] Care Team Providers Care Mortgage Loan Interviewer Name Role Phone Melecio Hooker MD Primary Care Provider [phone] Adam Hooker MD Unavailable [phone] Allergies Active Allergy Reactions Criticality Noted Date [...] 07/20/2021 Assessment & Plan (07/20/2021 2:45 PM PIERCING MACHINE OPERATOR): Diagnosed in 2014 Control : fluctuation in [...] exam on regular basis. Venous stasis 07/24/2019 Social History Tobacco Use Types Packs/Day Years Used Date Smoking Tobacco: Never Smokeless Tobacco: Never Personal Safety Answer Date Recorded Getting School Help Needed Not on file 07/15 Comments Unknown Sex and Gender Information Value Date Recorded Sex Assigned at Not on file Legal Sex Female 3:08 PM PIERCING MACHINE OPERATOR Gender Identity Not on file Sexual Orientation Not on file Last Filed Vital Signs Vital Sign Reading Time Taken Comments Blood Pressure 128/68 07/20/2021 1:58 PM PIERCING MACHINE OPERATOR Pulse - - Temperature - - Respiratory Rate - - Oxygen Saturation - - Inhaled Oxygen Concentration - - Weight 121.4 kg (267 lb 11.2 oz) 07/20/2021 1:58 PM PIERCING MACHINE OPERATOR Height 165.1 cm (5' 5 ) 07/20/2021 1:58 PM PIERCING MACHINE OPERATOR Body Mass Index 44.55 07/20/2021 1:58 PM PIERCING MACHINE OPERATOR Plan of Treatment Not on file Procedures [...] EXTERNAL LAB Blood specimen (specimen) 05/22/2021 Result [facility] Historical Provider MD LAB BLOOD ORDERABLES Georgina l Result Performing Organization Address City/[facility]/ZIP Co de Phone Number EXTERNAL LAB * Basic metabolic panel (05/22/2021) [...] - EXTERNAL LAB SCRIBED eGFR in NonAfrican Montserratian 47 - - - EXTERNAL LAB Blood specimen (specimen) 05/22/2021 Result [facility] Provider LAB BLOOD ORDERABLES Georgina l Result Performing Organization Address [facility] Co de Phone Number EXTERNAL LAB * Diabetic Eye Exam (03/29/2021) Result [facility] Provider HEALTH MAINTENANCE Final Result * Albumin Creatinine Ratio, Urine (01/16/2021) SCRIBED Creatinine, Urine 145.24 - - - EXTERNAL LAB SCRIBED Microalbumin <13.0 - - - EXTERNAL LAB Urine 01/16/2021 Result [facility] Historical Provider LAB URINE ORDERABLES Georgina l Result Performing Organization Address City/[facility]/ZIP Co de Phone Number EXTERNAL LAB * Lipid panel (01/16/2021) SCRIBED Cholesterol, Total 148 - - - EXTERNAL LAB SCRIBED HDL 38 - - - EXTERNAL LAB SCRIBED LDL 75 - - - EXTERNAL LAB SCRIBED Triglycerides 175 - - - EXTERNAL LAB Blood specimen (specimen) 01/16/2021 us Historical Provider LAB BLOOD ORDERABLES Georgina l Result EXTERNAL LAB from Last 3 Months or Most Recently Relevant to Health Maintenance Insurance [address] [place] [id number] [facility] Care Teams Mortgage Loan Interviewer Relationship Specialty Start Date End Date Melecio Hooker MD [address] [place] [address] PCP - General Internal Medicine 07/09/19 Adam Hooker MD [address] [place] [address] Internal Medicine 07/09/19
[2024-06-22 10:52] LABS: Hematocrit 41.7 % (35.0-49.0); Hemoglobin 13.4 g/dL (12.0-15.0); Mean Corpuscular HGB Conc 32.1 g/dL (32-36); Mean Corpuscular Volume 90.3 fL (78.0-102.0); Mean Platelet Volume 9.8 fl (9.2-11.8); Platelet Count Result 306 K/mm3 (150-420); Red Blood Count 4.62 M/mm3 (4.20-5.40); Red Cell Distribution Width 12.4 % (11.6-14.4); White Blood Count 9.5 K/mm3 (4.8-10.8)
[2024-06-22 11:04] LABS: Add Urine Microscopic? YES; Appearance Urine Clear (Clear); Bilirubin Urine Negative (Negative); Blood Urine Negative (Negative); Color Urine Light Yellow (Yellow); Glucose Urine UA Negative (Negative); Ketones Urine Negative (Negative); Leukocyte Esterase Ur 1+ (Negative); Nitrate Urine Negative (Negative); Protein Urine Negative (Negative); Specific Grav Ur >= 1.030 (1.010-1.020); Urobilinogen Urine 0.2 mg/dL (0.2-1.0); pH Urine 5.5 (5.0-8.0)
[2024-06-22 11:09] LABS: RBC Urine None seen /hpf (0-2)
[2024-06-22 11:10] LABS: Bacteria Urine 1+ /hpf; WBC Clumps Urine Present /hpf
[2024-06-22 11:11] LABS: Creatinine Urine 126.28 mg/dL (40-278); MALB Creatinine Ratio 19.4 mg/g (0-30); Microalbumin Urine Random 24.6 mg/L
[2024-06-22 11:13] LABS: Hemoglobin A1C 8.7 % (<5.7)
[2024-06-22 11:28] LABS: Alanine Aminotransferase 42 U/L (14-59); Albumin Level 3.4 g/dL (3.4-5.0); Alkaline Phosphatase 111 U/L (46-116); Anion Gap 8 mmol/L (4-12); Aspartate Amino Transferase 28 U/L (15-37); Bilirubin,Total 0.4 mg/dL (0.00-1.00); Blood Urea Nitrogen 16 mg/dL (7-18); Calcium 9.1 mg/dL (8.5-10.1); Carbon Dioxide 30 mmol/L (21-32); Chloride 103 mmol/L (98-108); Cholesterol 174 mg/dL (0-200); Creatine Kinase 41 U/L (26-192); Estimated Glomerular Filt Rate 52; Glucose 199 mg/dL (70-99); HDL Direct 47 mg/dL (40-60); LDL Cholesterol Calculated 102 mg/dL (<130); Osmolality Calculated 299 mOsm/kg (285-295); Potassium 4.2 mmol/L (3.5-5.1); Sodium 141 mmol/L (136-145); Thyroid Stimulating Hormone 1.65 uIU/mL (0.36-3.74); Total Protein 7.2 g/dL (6.4-8.2); Triglycerides 124 mg/dL (0-150)
== END 2024-06-22 10:34 | disposition home or self-care (01) ==
LOC: CHSLAB 10:36
PROVIDERS: PCP Internal Medicine; Visit Provider Internal Medicine
DX: E11.65 Type 2 diabetes mellitus with hyperglycemia (principal); I10 Essential (primary) hypertension; E78.2 Mixed hyperlipidemia
CPT/HCPCS: 36415; 80053; 80061; 81001; 82043; 82550; 83036; 84439; 84443; 85027

== ENCOUNTER 2024-09-09 07:43 | Outpatient (CLI) | payer BC, SELFPAY ==
--- NOTE | ~2024-09-09 | MM_ITS ---
EXAMINATION: MM screening syeda BI w bárbara HISTORY: Screening mammogram, family history of breast cancer in her mother. TECHNIQUE: Craniocaudal and mediolateral oblique 3-D tomosynthesis images were obtained and synthetic 2-D images were generated. CAD analysis was submitted and interpreted. COMPARISON: 07/14/2023, 07/12/2022, 06/21/2021, 02/17/2020 BREAST PARENCHYMAL COMPOSITION:Not Dense. The breasts are almost entirely fatty FINDINGS: No suspicious mass, calcification, or architectural distortion are identified in either elizabeth ast to suggest malignancy. There has been no suspicious interval change. IMPRESSION: No mammographic evidence of malignancy. Recommend routine screening mammography in one year. BI-RADS Category 1: Negative Reviewed, dictated and finalized at location .
--- NOTE | ~2024-09-09 | DEXA_ITS ---
Bone Density Report Name: ABEBE RAINES Age: 59 Sex: Female Ethnicity: White Date of : 1965 Indication: osteopenia; Referring Provider: Adam Hooker Study: Bone densitometry was performed. Exam Date: September 09, 2024 Accession number: [id number] Bone Density: Region BMD T-score Z-score Classification AP Spine(L1-L4) 0.854 -1.8 -0.4 Osteopenia Femoral Neck (Left) 0.670 -1.6 -0.4 Osteopenia Total Hip (Left) 0.776 -1.4 -0.4 Osteopenia Femoral Neck (Right) 0.746 -0.9 0.3 Normal Total Hip (Right) 0.798 -1.2 -0.3 Osteopenia Femoral Neck Mean 0.708 -1.3 0.0 Osteopenia Total Hip Mean 0.787 -1.3 -0.4 Osteopenia World Health Organization criteria for BMD impression classify patients as: Normal (T-score at or above -1.0), Osteopenia (T-score between -1.0 and -2.5), or Osteoporosis (T-score at or below -2.5). 10-year Fracture Risk(1): Major Osteoporotic Fracture 7.4% Hip Fracture 0.6% Reported Risk Factors: [place] (), Neck BMD=0.670, BMI=38.4 (1) FRAX(R) Version 3.08. Fracture probability calculated for an untreated patient. Fracture probability may be lower if the patient has received treatment. Previous Exams: Region Exam Age BMD T-score BMD Change BMD Change Date g/cm2 vs Baseline vs Previous AP Spine (L1-L4) 09/09/2024 59 0.854 -1.8 -0.023 (-2.6%) -0.023 (-2.6%) 09/06/2022 57 0.877 -1.5 Total Hip(Left) 09/09/2024 59 0.776 -1.4 -0.059 (-7.1%) -0.059 (-7.1%) 09/06/2022 57 0.836 -0.9 Total Hip(Right) 09/09/2024 59 0.798 -1.2 -0.009 (-1.1%) -0.009 (-1.1%) 09/06/2022 57 0.807 -1.1 *Denotes significance at 95% confidence level, LSC for AP Spine = 0.022 g/cm2, LSC for Total Hip = 0.027 g/cm2 Clinical Information Provided by Patient: Has used the following medications: Vitamin D, Calcium Patient maximum height was 66. Menopause Age: 50 No regular weight bearing exercise Does not regularly consume dairy products Drinks caffeinated beverages Onset of menses at age 12 Number of children 0 Impression: The patient has low bone mass, based on the Total Spine T-score. The BMD for the AP Spine (L1-L4) decreased, changing by -2.6% since the last DXA exam. The BMD for the Total Hip(Left) decreased, changing by -7.1% since the last DXA exam. Discussion: BONE DENSITY IS LOW AT ONE OR MORE SKELETAL SITES. This patient's lowest T-score is low at one or more skeletal sites. It meets the World Health Organization's (WHO) criteria for ?low bone mass? (T-score between -1.0 and -2.5). The patient's 10-year risk of fracture as calculated by FRAX is less than the threshold where pharmacological therapy is recommended by the National Osteoporosis Foundation (NOF). However, all treatment decisions require clinical judgment and consideration of individual patient factors, including patient preferences, comorbidities, previous drug use, risk factors not captured in the FRAX model (e.g., frailty, falls, vitamin D deficiency, increased bone turnover, interval significant decline in bone density) and possible under or overestimation of fracture risk by FRAX. The patient should follow a healthful lifestyle (good nutrition with adequate calcium and vitamin D, and appropriate weight-bearing exercise). Follow-Up: Consider repeating this study in 2 years to reassess this patient's status, or sooner if there is some new clinical indication. Reported by: VADIM on 09/10/2024 10:07:00 AM. Reviewed, dictated and finalized at location A.
--- OUTSIDE RECORDS SUMMARY | 2024-09-09 07:46 | XMS_ITS | Clinical Summary ---
Author Organization [facility] Address [address] [place] [address] Care Team Providers Care Electrical Checkout Mechanic Name Role Phone Adam Hooker MD Primary Care Provider [phone] Source Comments [facility],non-owned Affiliates and Associated Physician Practices is amultiple site organization consisting of ambulatory clinics and hospital sitesin [place], [place], [place] and [place]. This disclosure is being madepursuant to the Care Everywhere program and may not contain all information available regarding this patient. Last updated 18.[facility] Allergies Active Allergy Reactions Criticality Noted Date Comments Sulfa Drugs Itching,Swelling 03/21/2019 Medications * Be aware that medications may not be up to date on this document. Alwaysverify current medications with the patient. glimepiride (AMARYL) 4 MG tablet 03/19/2019 Active lisinopril (PRINIVIL; ZESTRIL) 10 MG tablet 01/15/2019 Active metFORMIN ER 24hr (GLUCOPHAGE XR) 500 MG tablet 12/30/2018 Activ e pioglitazone (ACTOS) 30 MG tablet 01/20/2019 Active pravastatin (PRAVACHOL) 20 MG tablet 03/19/2019 Active Active Problems Problem Noted Date Diagnosed Date Mass of right breast on mammogram 10/13/2019 Immunizations Immunization Administration Dates Next Due INFLUENZA VACCINE 01/15/2020 [...] drink = 0.6 oz pur e alcohol) Comments Unknown Sex and Gender Information Value Date Recorded Sex Assigned at Not on file Legal Sex Female 10:13 AM CDT Gender Identity Not on file Sexual Orientation [...] VACCINE (1 - 2023-2 5 season) 2024 DEPRESSION SCREENING 05/15/2024 INFLUENZA VACCINE (Season Ended) 2025 01/15/20 20 HIB VACCINE Aged Out No longer eligi ble based on patient's age to complete this topic HPV VACCINE Aged Out No longer eligi ble based on patient's age to complete this topic MENINGOCOCCAL (Group B) VACC INE SHARED DECISION-MAKING Aged Out No longer eligibl e based on patient's age to complete this topic MENINGOCOCCAL GROUPS A/C/Y/W VACCINE Aged Out No longer eligible b ased on patient's age to complete this topic [...] CAD analysis. Concetta Schultz MD MAMMO ORDERABLES Final Res ult from Last 3 Months or Most Recently Relevant to Health Maintenance Insurance [employer] Care Teams Electrical Checkout Mechanic Relationship Specialty Start Date End Date Adam Hooker MD PCP - General 03/12/19
--- OUTSIDE RECORDS SUMMARY | 2024-09-09 07:46 | XMS_ITS | Referral Summary ---
Author Organization [facility] [address] Address [address] [place] [id number] Care Team Providers Care Perinatal Nurse Name Role Phone Melecio Hooker MD Primary Care Provider [phone] Adam Hooker MD Unavailable [phone] Allergies Active Allergy Reactions Criticality Noted Date [...] 07/20/2021 Assessment & Plan (07/20/2021 2:45 PM ATTENDANT CAMPGROUND): Diagnosed in 2014 Control : fluctuation in [...] on file Legal Sex Female 3:08 PM ATTENDANT CAMPGROUND Gender Identity Not on file Sexual Orientation Not on file Last Filed Vital Signs Vital Sign Reading Time Taken Comments Blood Pressure 128/68 07/20/2021 1:58 PM ATTENDANT CAMPGROUND Pulse - - Temperature - - Respiratory Rate - - Oxygen Saturation - - Inhaled Oxygen Concentration - - Weight 121.4 kg (267 lb 11.2 oz) 07/20/2021 1:58 PM ATTENDANT CAMPGROUND Height 165.1 cm (5' 5 ) 07/20/2021 1:58 PM ATTENDANT CAMPGROUND Body Mass Index 44.55 07/20/2021 1:58 PM ATTENDANT CAMPGROUND Plan of Treatment Not on file Procedures [...] EXTERNAL LAB Blood specimen (specimen) 05/22/2021 Result [facility] Historical Provider MD LAB BLOOD ORDERABLES Georgina l Result Performing Organization Address City/[facility]/ZIP Co de Phone Number EXTERNAL LAB * [...] - EXTERNAL LAB SCRIBED eGFR in NonAfrican Iranian 47 - - - EXTERNAL LAB Blood specimen (specimen) 05/22/2021 Result [facility] Provider LAB BLOOD ORDERABLES Georgina l Result Performing Organization Address [facility] Co de Phone Number EXTERNAL LAB * Diabetic Eye Exam (03/29/2021) Result [facility] Provider HEALTH MAINTENANCE Final Result * Albumin Creatinine Ratio, Urine (01/16/2021) SCRIBED Creatinine, Urine 145.24 - - - EXTERNAL LAB SCRIBED Microalbumin <13.0 - - - EXTERNAL LAB Urine 01/16/2021 Result [facility] Historical Provider LAB URINE ORDERABLES Georgina l Result Performing Organization Address City/[facility]/ZIP Co de Phone Number EXTERNAL LAB * [...] Recently Relevant to Health Maintenance Insurance [address] [place] [address] [facility] Care Teams Perinatal Nurse Relationship Specialty Start Date End Date Melecio Hooker MD [address] [place] [address] PCP - General Internal Medicine 07/09/19 Adam Hooker MD [address] [place] [address] Internal Medicine 07/09/19
--- OUTSIDE RECORDS SUMMARY | 2024-09-09 07:46 | XMS_ITS | Clinical Summary ---
Author Organization [facility] [address] Address [address] [place] [id number] Care Team Providers Care Garment Manufacturing Supervisor Name Role Phone Melecio Hooker MD Primary Care Provider [phone] Adam Hooker MD Unavailable [phone] Allergies Active Allergy Reactions Criticality Noted Date [...] 07/20/2021 Assessment & Plan (07/20/2021 2:45 PM NURSING INFORMATICS SPECIALIST): Diagnosed in 2014 Control : fluctuation in [...] on file Legal Sex Female 3:08 PM NURSING INFORMATICS SPECIALIST Gender Identity Not on file Sexual Orientation Not on file Obstetrics History Last Filed Vital Signs Vital Sign Reading Time Taken Comments Blood Pressure 128/68 07/20/2021 1:58 PM NURSING INFORMATICS SPECIALIST Pulse - - Temperature - - Respiratory Rate - - Oxygen Saturation - - Inhaled Oxygen Concentration - - Weight 121.4 kg (267 lb 11.2 oz) 07/20/2021 1:58 PM NURSING INFORMATICS SPECIALIST Height 165.1 cm (5' 5 ) 07/20/2021 1:58 PM NURSING INFORMATICS SPECIALIST Body Mass Index 44.55 07/20/2021 1:58 PM NURSING INFORMATICS SPECIALIST Plan of Treatment Health Maintenance Due Date [...] eGFR 05/22/2022 05/22/2021 Foot Exam 07/20/2022 07/20/2021 Pneumococcal vaccine <65 (3 of 3 - PCV20 or PCV21) 12/27/2023 12/26/2018, 07/23/2015, 01/31/2014 Covid-19 Vaccine (4 - 2023-2 5 season) 2024 02/23/2021, 08/02/2020, 07/12/2020 Influenza Vaccine (Season Ended) 2025 02/02/2021, 01/15/2020, 03/07/2019, Additional history exists Zoster Vaccine Completed 03/20/2019, 12/07/2018 Procedures Procedure [...] Blood specimen (specimen) 05/22/2021 us Historical Provider LAB BLOOD ORDERABLES Georgina [...] - EXTERNAL LAB SCRIBED eGFR in NonAfrican Greek 47 - - - EXTERNAL LAB Blood specimen (specimen) 05/22/2021 Result [facility] Provider MD LAB BLOOD ORDERABLES Georgina l Result EXTERNAL LAB * Diabetic Eye Exam (03/29/2021) Result [facility] Provider MD HEALTH MAINTENANCE Final Result * Albumin Creatinine Ratio, Urine (01/16/2021) SCRIBED Creatinine, Urine 145.24 - - - EXTERNAL LAB SCRIBED Microalbumin <13.0 - - - EXTERNAL LAB Urine 01/16/2021 Result [facility] Provider MD LAB URINE ORDERABLES Georgina l Result Performing Organization Address [facility] Co de Phone Number EXTERNAL LAB * Lipid panel (01/16/2021) SCRIBED Cholesterol, Total 148 - - - EXTERNAL LAB SCRIBED HDL 38 - - - EXTERNAL LAB SCRIBED LDL 75 - - - EXTERNAL LAB SCRIBED Triglycerides 175 - - - EXTERNAL LAB Blood specimen (specimen) 01/16/2021 Result [facility] Historical Provider LAB BLOOD ORDERABLES Georgina l Result Performing Organization Address City/[facility]/ZIP Co de Phone Number EXTERNAL LAB from Last 3 Months or Most Recently Relevant to Health Maintenance Insurance [employer] [facility] Care Teams Garment Manufacturing Supervisor Relationship Specialty Start Date End Date Melecio Hooker MD [address] [place] [address] PCP - General Internal Medicine 07/09/19 Adam Hooker MD [address] [place] [address] Internal Medicine 07/09/19
== END 2024-09-09 07:44 | disposition home or self-care (01) ==
PROVIDERS: PCP Internal Medicine; Visit Provider Internal Medicine
DX: Z12.31 Encounter for screening mammogram for malignant neoplasm of breast (principal); Z78.0 Asymptomatic menopausal state; M85.89 Other specified disorders of bone density and structure, multiple sites
CPT/HCPCS: 77063; 77067; 77080

== ENCOUNTER 2024-11-02 09:40 | Outpatient (CLI) | payer BC, SELFPAY ==
[2024-11-02 10:04] LABS: Hemoglobin A1C 7.1 % (<5.7)
[2024-11-02 10:18] LABS: Anion Gap 5 mmol/L (4-12); Blood Urea Nitrogen 13 mg/dL (7-17); Calcium 9.6 mg/dL (8.4-10.2); Carbon Dioxide 28 mmol/L (22-30); Chloride 102 mmol/L (98-107); Estimated Glomerular Filt Rate > 60; Glucose 198 mg/dL (65-110); Osmolality Calculated 286 mOsm/kg (285-295); Potassium 4.7 mmol/L (3.4-5.0); Sodium 135 mmol/L (137-145)
== END 2024-11-02 09:41 | disposition home or self-care (01) ==
LOC: CHSLAB 09:41
PROVIDERS: PCP Internal Medicine; Visit Provider Internal Medicine
DX: E11.65 Type 2 diabetes mellitus with hyperglycemia (principal)
CPT/HCPCS: 36415; 80048; 83036

== ENCOUNTER 2025-02-22 08:16 | Outpatient (CLI) | payer BC, SELFPAY ==
--- OUTSIDE RECORDS SUMMARY | 2025-02-22 08:19 | XMS_ITS | Clinical Summary ---
Author Organization [facility] [employer] Address [address] [place] [address] Care Team Providers Care Grades 6 Through 8 Teacher Name Role Phone Adam Hooker MD Primary Care Provider [phone] Source Comments [facility] [employer],non-owned Affiliates and Associated Physician Practices is amultiple site organization consisting of ambulatory clinics and hospital sitesin [place], [place]. This disclosure is being madepursuant to the Care Everywhere program and may not contain all information available regarding this patient. Last updated 18.[facility] [employer] Allergies Active Allergy Reactions Criticality Noted Date [...] 8:58 AM CDT Height 167.6 cm (5' 6) 02/17/2020 8:58 AM CDT Body Mass Index [...] FLEX SIG - COLON CA SCREENING 1965 HIV SCREENING 1980 HEPATITIS C SCREENING 04/19/1983 DTAP/TDAP/TD VACCINES (1 - Tdap) 1984 HEPATITIS B VACCINE (1 of 3 - 19+ 3-dose series) 1984 PNEUMOCOCCAL VACCINE 50+ (1 of 1 - PCV) 2015 ZOSTER VACCINE (1 of 2) 2015 SCREENING FOR DIABETES 03/21/2019 MAMMOGRAM 02/16/2022 02/17/2020 DEPRESSION SCREENING 05/15/2024 COVID-19 VACCINE (1 - 2023-2 5 season) 2025 INFLUENZA VACCINE (#1) 2025 01/15/2020 HIB VACCINE Aged Out No longer eligi [...] This examination was subjected to CAD analysis. us Concetta Schultz MD MAMMO ORDERABLES Final Res ult from Last 3 Months or Most Recently Relevant to Health Maintenance Insurance [employer] Care Teams Grades 6 Through 8 Teacher Relationship Specialty Start Date End Date Adam Hooker MD PCP - General 03/12/19
--- OUTSIDE RECORDS SUMMARY | 2025-02-22 08:19 | XMS_ITS | Clinical Summary ---
Author Organization [facility] [place] [place] [address] Address [address] [place] [id number] Care Team Providers Care Data Entry Associate Name Role Phone Melecio Hooker MD Primary Care Provider [phone] Adam Hooker MD Unavailable [phone] Allergies Active Allergy Reactions Criticality Noted Date [...] 07/20/2021 Assessment & Plan (07/20/2021 2:45 PM FUSION ANALYST): Diagnosed in 2014 Control : fluctuation in [...] History Medical History Date Comments Hypertension Diabetes Morbid obesity (HCC) Social History Tobacco Use Types Packs/Day Years Used Date Smoking Tobacco: Never Smokeless Tobacco: Never Personal Safety Answer Date Recorded Getting School Help Needed Not on file 07/15 Comments Unknown Sex and Gender Information Value Date Recorded Sex Assigned at Not on file Legal Sex Female 3:08 PM FUSION ANALYST Gender Identity Not on file Sexual Orientation Not on file Obstetrics History Last Filed Vital Signs Vital Sign Reading Time Taken Comments Blood Pressure 128/68 07/20/2021 1:58 PM FUSION ANALYST Pulse - - Temperature - - Respiratory Rate - - Oxygen Saturation - - Inhaled Oxygen Concentration - - Weight 121.4 kg (267 lb 11.2 oz) 07/20/2021 1:58 PM FUSION ANALYST Height 165.1 cm (5' 5) 07/20/2021 1:58 PM FUSION ANALYST Body Mass Index 44.55 07/20/2021 1:58 PM FUSION ANALYST Plan of Treatment Health Maintenance Due Date [...] 12/26/2018, 07/23/2015, 01/31/2014 Covid-19 Vaccine (4 - 2024-2 6 season) 2025 02/23/2021, 08/02/2020, 07/12/2020 Influenza Vaccine (#1) 2025 , 01/15/2020, 03/07/2019, Additional history exists Zoster Vaccine [...] - - mg/dl EXTERNAL LAB SCRIBED eGFR 47 - - - EXTERNAL LAB SCRIBED eGFR 47 - - - EXTERNAL LAB Blood specimen (specimen) 05/22/2021 [facility] Provider LAB BLOOD ORDERABLES Georgina l Result EXTERNAL LAB * Diabetic Eye Exam (03/29/2021) [facility] Provider MD HEALTH MAINTENANCE Final Result * Albumin Creatinine Ratio, Urine (01/16/2021) SCRIBED Creatinine, Urine 145.24 - - - EXTERNAL LAB SCRIBED Microalbumin <13.0 - - - EXTERNAL LAB Urine 01/16/2021 [facility] Provider LAB URINE ORDERABLES Georgina l Result Performing Organization Address [facility] Co de Phone Number EXTERNAL LAB * Lipid panel (01/16/2021) SCRIBED Cholesterol, Total 148 - - - EXTERNAL LAB SCRIBED HDL 38 - - - EXTERNAL LAB SCRIBED LDL 75 - - - EXTERNAL LAB SCRIBED Triglycerides 175 - - - EXTERNAL LAB Blood specimen (specimen) 01/16/2021 [facility] Provider LAB BLOOD ORDERABLES Georgina l Result Performing Organization Address City/[facility]/ZIP Co de Phone Number EXTERNAL LAB from Last 3 Months or Most Recently Relevant to Health Maintenance Insurance [facility] Care Teams Data Entry Associate Relationship Specialty Start Date End Date Melecio Hooker MD [address] [place] [address] PCP - General Internal Medicine 07/09/19 Adam Hooker MD [address] [place] [address] Internal Medicine 07/09/19
[2025-02-22 08:28] LABS: Hematocrit 40.6 % (35.0-49.0); Hemoglobin 13.0 g/dL (12.0-15.0); Immature Granulocyte Percent A 0.2 % (0.0-0.0); Lymphocytes Absolute Auto 3.38 K/mm3 (1.10-4.50); Mean Corpuscular HGB Conc 32.0 g/dL (32-36); Mean Corpuscular Hemoglobin 29.2 pg (27.0-31.0); Mean Corpuscular Volume 91.2 fL (78.0-102.0); Nucleated Red Blood Cells Absolute Auto 0.00 K/mm3 (0.00-0.00); Nucleated Red Blood Cells Perc 0.0 % (0-0.0); Platelet Count Result 308 K/mm3 (150-420); Red Blood Count 4.45 M/mm3 (4.20-5.40); White Blood Count 10.2 K/mm3 (4.8-10.8)
[2025-02-22 08:50] LABS: Hemoglobin A1C 7.4 % (<5.7)
[2025-02-22 09:03] LABS: Alanine Aminotransferase 38 U/L (6-35); Albumin Level 4.1 g/dL (3.5-5.1); Alkaline Phosphatase 102 U/L (38-126); Anion Gap 10 mmol/L (4-12); Aspartate Amino Transferase 36 U/L (14-36); Bilirubin,Total 0.4 mg/dL (0.2-1.3); Blood Urea Nitrogen 13 mg/dL (7-17); Calcium 10.0 mg/dL (8.4-10.2); Carbon Dioxide 28 mmol/L (22-30); Chloride 101 mmol/L (98-107); Cholesterol 148 mg/dL (0-200); Creatine Kinase 32 U/L (30-135); Estimated Glomerular Filt Rate > 60; Glucose 170 mg/dL (65-110); HDL Direct 42 mg/dL; Osmolality Calculated 292 mOsm/kg (285-295); Potassium 4.5 mmol/L (3.4-5.0); Sodium 139 mmol/L (137-145); Total Protein 7.6 g/dL (6.3-8.2); Triglycerides 215 mg/dL (<150)
[2025-02-22 09:12] LABS: Add Urine Microscopic? YES; Appearance Urine Clear (Clear); Glucose Urine UA Negative (Negative); Leukocyte Esterase Ur 2+ LEU/UL (Negative); Nitrate Urine Negative (Negative); Specific Grav Ur 1.025 (1.010-1.020)
[2025-02-22 09:19] LABS: Free T4 Free Thyroxine 1.12 ng/dL (0.78-2.19)
[2025-02-22 09:23] LABS: MALB Creatinine Ratio 40.8 mg/g (0-30)
[2025-02-22 09:33] LABS: Thyroid Stimulating Hormone 0.089 uIU/mL (0.465-4.680)
== END 2025-02-22 08:17 | disposition home or self-care (01) ==
LOC: CHSLAB 08:18
PROVIDERS: PCP Internal Medicine; Visit Provider Internal Medicine
DX: E78.2 Mixed hyperlipidemia (principal); I10 Essential (primary) hypertension; E11.65 Type 2 diabetes mellitus with hyperglycemia; E03.4 Atrophy of thyroid (acquired)
CPT/HCPCS: 36415; 80053; 80061; 81001; 82043; 82550; 83036; 84439; 84443; 85025